=== PATIENT | male | born 1970 | race Caucasian/White ===

== ENCOUNTER 2016-12-16 13:59 | Emergency (ER) | payer OTHER ==
[~2016-12-16] VITALS: Ht 177.8 cm; Wt 59.1 kg
[2016-12-16] MEDS ORDERED: ARIP20TA8 PO (14:29)
[2016-12-16 16:02] VITALS: BP 111/61
== END 2016-12-16 16:24 | disposition home or self-care (01) ==
LOC: EMS 14:01 → EEVIPCON 14:01 → EMS 16:24
DX: F20.9 Schizophrenia, unspecified (principal); F17.210 Nicotine dependence, cigarettes, uncomplicated; F15.90 Other stimulant use, unspecified, uncomplicated
CPT/HCPCS: 99284